=== PATIENT | female | born 1950 | race Caucasian/White ===

== ENCOUNTER 2019-10-15 07:30 | Outpatient (CLI) | payer SELFPAY | END 2019-10-15 07:31 | disposition home or self-care (01) | LOC: ANHWCLAB 07:39 | PROVIDERS: PCP Family Medicine | DX: D53.1 Other megaloblastic anemias, not elsewhere classified (principal); E03.9 Hypothyroidism, unspecified; E06.3 Autoimmune thyroiditis; M04.9 Autoinflammatory syndrome, unspecified | CPT/HCPCS: 36415 ==

== ENCOUNTER 2020-05-13 06:54 | Outpatient (NON) | payer MEDICARE, SELFPAY ==
[2020-05-14 00:43] LABS: SARS-CoV-2 RNA PCR Negative
== END 2020-05-13 06:55 ==
PROVIDERS: PCP Family Medicine; Visit Provider Family Medicine
DX: R50.9 Fever, unspecified (principal); J32.9 Chronic sinusitis, unspecified; Z20.828 Contact with and (suspected) exposure to other viral communicable diseases
CPT/HCPCS: 87635; C9803; U0003

== ENCOUNTER 2020-05-16 15:56 | Emergency (ER) | payer MEDICARE, SELFPAY ==
[2020-05-16 16:12] VITALS: BP 151/77; PULSE 139; RESP 20; TEMP 37; O2SAT 99
--- NOTE | 2020-05-16 16:39 | ED.EAR ---
HPI - Ear Problem General Chief complaint: Ear Stated complaint: earache, ankle Time Seen by Provider: 05/16/20 16:09 Source: patient and RN notes reviewed Mode of arrival: ambulatory Limitations: no limitations History of Present Illness HPI Narrative: Patient presents today with a 2 to 3-week history of intermittent right ear pain that has been consistent the past 5 days. Denies drainage or decreased hearing. Denies any additional symptoms except for fever. Fever is been occurring, only at nighttime, for the past 5 days with a T-max of 104 4 days ago. Patient had a negative COVID 19 test 6 days ago. Denies cough, congestion, rhinorrhea. She has taken no medication for symptoms prior to arrival. 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 MD Complaint: ear pain Related Data Home Medications Medication Instructions Recorded Confirmed fludrocortisone 0.1 mg DAILY 05/16/20 05/16/20 hydrocortisone 40 mg DAILY 05/16/20 05/16/20 thyroid (pork) [[place] Thyroid] 15 mg DAILY 05/16/20 05/16/20 Allergies Allergy/AdvReac Type Severity Reaction Status Date / Time levothyroxine sodium Allergy Unknown Verified 03/19/13 08:46 Review of Systems Review of Systems: Narrative: CONSTITUTIONAL: Denies body aches, chills, or sweats. + Fever, none at this time EYES: Denies visual changes, redness, or discharge. ENT: Denies rhinorrhea, congestion, sore throat. + Right ear pain CARDIOVASCULAR: Denies chest pain, palpitations, or edema. RESPIRATORY: Denies cough or dyspnea. GASTROINTESTINAL: Denies abdominal pain, nausea, vomiting, or diarrhea. GENITOURINARY: Denies dysuria or hematuria. SKIN: Denies rash, itching, or wounds. MUSCULOSKELETAL: Denies back pain, joint pain, or myalgia. NEUROLOGIC: Denies headache, numbness, tingling, or weakness. PSYCH: Denies depression or anxiety. [facility] Past Medical History Medical History (Updated 05/16/20 @ 16:46 by Batool Felder, DUCT CLEANER, ) Addisons disease Hypothyroidism Family History Family History (Updated 04/08/16 @ 23:19 by DOCTOR UNKNOWN) Mother Family history of arthritis Family history of diabetes mellitus in first degree relative Grandparent Family history of arthritis Diabetes mellitus Father Family history of Alzheimer's disease Social History Social History Smoking status: Never smoker Alcohol intake: never Gender identity (if verbalized by the patient): Female Comments At time of signature, I have reviewed and agree with nursing past medical, surgical, social and family history unless otherwise noted. Please see nursing chart for further information. There is no relevant family history pertinent to the presenting complaint Exam Narrative: Exam Narrative: GENERAL: Well-appearing, well-nourished, thin, and in no acute distress. HEAD: Normocephalic, atraumatic. EYES: EOMI. No redness or drainage. Conjunctivae normal. ENT: Mucous membranes pink and moist. Nares clear. No rhinorrhea. TMs normal bilaterally without any signs of infection. Mild tenderness to the area of the right eustachian tube. Throat normal. Uvula midline. NECK: Normal AROM. Supple. No lymphadenopathy. CHEST: No respiratory distress. Clear to auscultation. HEART: Regular rate and rhythm. No murmur appreciated. Normal peripheral pulses. EXTREMITIES: Normal range of motion. No edema. SKIN: Warm, dry, no rash. Capillary refill normal. Normal skin turgor. NEURO: No focal deficits. Alert and oriented x3. Gait steady. PSYCH: Normal affect. No signs of depression or anxiety. Course Course Emergency Course: Patient declines prescription for Flonase, as she would like to speak with her PCP before she starts this. Have also instructed follow-up with PCP if fever persists. Vital Signs Vital signs: Vital Signs Temperature 98.6 F 05/16/20 16:12 Pulse Rate 139 H 05/16/20 16:12 Respiratory Rate 20 05/16/20 16:12 Blood Pressure 151/77 H 05/16/20
== END 2020-05-16 16:57 | disposition home or self-care (01) ==
PROVIDERS: Emergency Provider Nurse Practitioner; PCP Family Medicine
DX: H69.91 Unspecified Eustachian tube disorder, right ear (principal); E27.1 Primary adrenocortical insufficiency; E03.9 Hypothyroidism, unspecified
CPT/HCPCS: 99211; G0463

== ENCOUNTER 2020-07-24 09:03 | Outpatient (CLI) | payer MEDICARE, SELFPAY ==
[2020-07-24 14:21] LABS: IFOB Positive Control Positive; Immunochemical Fecal Occult Bl Positive (N)
== END 2020-07-24 09:04 | disposition home or self-care (01) ==
PROVIDERS: PCP Family Medicine; Visit Provider Family Medicine
DX: R19.7 Diarrhea, unspecified (principal)
CPT/HCPCS: 82274; 87045; 87046; 87324; 87427; 89055

== ENCOUNTER 2021-01-02 08:00 | Emergency (ER) | payer MEDICARE, SELFPAY ==
--- NOTE | ~2021-01-02 | CT_ITS ---
EXAMINATION: CTA chest DATE: 01/02/2021 09:57 INDICATION: Left posterior chest pain. TECHNIQUE: Computed tomographic angiography (CTA) of the chest was performed with 100 mL Omnipaque-35 0 intravenous contrast. Automated exposure control and iterative reconstruction technique were employ ed. The dose-length product was 151.93 mGy-cm. Maximum intensity projection 3D-reconstructions of the aorta and other arteries were constructed by the technologist on a separate workstation. COMPARISON: Chest CT 02/03/2016 FINDINGS: There is mild scarring at the lung apices. There is mild atelectasis bilaterally. No pleura l effusion. The heart size is normal. No pericardial effusion. There is no pulmonary embolus. Thoraci c aorta is normal. There is a 7 mm cyst in left kidney. There are multiple chronic vertebral body fra ctures. There is mild thoracic spondylosis. No rib fracture. IMPRESSION: 1. Normal thoracic aorta. 2. No pulmonary embolus. Reviewed, dictated and finalized at location A.
[2021-01-02 08:11] VITALS: BP 131/71; PULSE 140; RESP 18; TEMP 36.4; O2SAT 100
[2021-01-02 08:21] VITALS: BP 134/79; PULSE 129; RESP 13; O2SAT 99
--- NOTE | 2021-01-02 08:22 | ECG_ITS ---
Measurements Intervals [place] Rate: 119 P: [place]: 0 QRS: 76 QRSD: 71 T: 68 QT: 300 QTc: 423 Interpretive Statements SINUS TACHYCARDIA BASELINE ARTIFACT- I, II, AVR, AVL, AVF ABNORMAL ECG Electronically Signed On 01-02-2021 12:01:18 CDT by Vahe Mukherjee D.O.
--- NOTE | 2021-01-02 08:25 | ED.GENADULT ---
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 She woke up with dull aching pain located at left shoulder blade on Monday. She states her pain has been constant but it seemed worse today. Her pain is exacerbated by twisting and movement. she has not taken anything for her pain. She denies cough, fever, shortness of breath, nausea or vomiting. She has been noted to be tachycardic in triage. She reports she has intermittent palpitations due to her diseases. She reports resting heart rate above 100s. She takes Propranolol as needed but she states she does not take it daily. Related Data Home Medications Medication Instructions Recorded Confirmed fludrocortisone 0.1 mg DAILY 05/16/20 05/16/20 hydrocortisone 10 mg DAILY 05/16/20 05/16/20 thyroid (pork) [[place] Thyroid] 15 mg DAILY 05/16/20 05/16/20 hydrocortisone 5 mg PO DAILY 01/02/21 hydrocortisone 5 mg PO DAILY 01/02/21 thyroid (pork) [[place] Thyroid] DAILY 01/02/21 Allergies Allergy/AdvReac Type Severity Reaction Status Date / Time Penicillins Allergy Mild Itching Verified 01/02/21 08:14 levothyroxine sodium Allergy Hives Verified 01/02/21 08:15 [From Synthroid] Review of Systems Review of Systems: All systems reviewed & are unremarkable except as noted in HPI and below Constitutional: Constitutional: Denies chills and Denies fever(s) Cardiovascular: Cardiovascular: Denies chest pain and Denies radiating jaw, neck or arm pain Respiratory: Respiratory: Denies cough, Denies dyspnea and Denies wheezing Gastrointestinal: Gastrointestinal: Denies abdominal pain, Denies diarrhea, Denies nausea and Denies vomiting [facility] Past Medical History Medical History (Updated 01/02/21 @ 10:44 by Hali Carl MD) Addisons disease Hypothyroidism Intermittent palpitations Family History Family History (Updated 04/08/16 @ 23:19 by DOCTOR UNKNOWN) Mother Family history of arthritis Family history of diabetes mellitus in first degree relative Grandparent Family history of arthritis Diabetes mellitus Father Family history of Alzheimer's disease Social History Social History Smoking status: Never smoker Alcohol intake: never Gender identity (if verbalized by the patient): Female Exam Const: General: no acute distress and alert Nutritional Appearance: thin Orientation/consciousness: patient oriented x3 Eyes: EOM: EOMs intact bilaterally Chest: Chest palpation & inspection: normal inspection of the chest Resp: Effort & Inspection: normal respiratory effort and no retractions Auscultation: clear to auscultation bilaterally Cardio: Rate: tachycardic Rhythm: regular rhythm Heart sounds: no murmurs GI: GI Palp: Yes Soft to palpation, Yes Tenderness to palpation present (GI) (epigastric), No Guarding due to palpation present (GI) and No Rigid due to palpation Auscultation: normal bowel sounds Back/Spine/Pelvis: Back: no CVA tenderness Skin: General skin exam: normal color Rashes: no rashes Neuro: General: patient oriented x3, moves all extremities and CN's II-XI intact bilaterally Extrem: General: no pedal edema Psych: Affect: Anxious affect present Course Reevaluation(s) Reevaluation #1: I Discussed with patient CT results showing multiple chronic fractures of her thoracic spine. This is likely exacerbating her pain. No acute fractures. She has appointment with PCP on Monday. She denies any prescriptions for pain or muscle relaxer. Date: 01/02/21 Time: 10:41 Vital Signs Vital signs: Vital Signs Temperature 97.6 F 01/02/21 08:11 Pulse Rate 140 H 01/02/21 08:11 Respiratory
[2021-01-02 08:44] LABS: Hematocrit 46.1 % (37.0-47.0); Hemoglobin 15.4 g/dL (12.0-15.0); Mean Corpuscular HGB Conc 33.4 g/dl (32-36); Mean Corpuscular Hemoglobin 31.2 pg (26-34); Mean Corpuscular Volume 93.5 fl (80-100); Platelet Count Result 225 k/mm3 (150-375); Red Blood Count 4.93 M/mm3 (4.2-5.4); Red Cell Distribution Width 13.3 % (11.5-14.5); White Blood Count 4.9 K/mm3 (4.5-10.0)
[2021-01-02] MEDS: SODIUM CHLORIDE 0.9% IV 1,000 ML 999 ML IV CONT (08:48)
[2021-01-02 08:50] LABS: Lactic Acid Reflex 1.3 mmol/L (0.7-2.1)
[2021-01-02 08:54] LABS: Alanine Aminotransferase 21 U/L (4-35); Albumin Level 4.5 g/dL (3.5-5.1); Alkaline Phosphatase 94 U/L (38-126); Anion Gap 7 mmol/L (8-16); Aspartate Amino Transferase 37 U/L (14-36); Bilirubin,Total 0.5 mg/dL (0.2-1.3); Blood Urea Nitrogen 19 mg/dL (7-17); CRP < 0.5 mg/dL (<1.0); Calcium 9.6 mg/dL (8.4-10.2); Carbon Dioxide 28 mmol/L (22-30); Chloride 103 mmol/L (98-107); Estimated CRCL calculation 65 ml/min; Estimated Glomerular Filt Rate > 60; Glucose 114 mg/dL (65-105); Lipase 143 U/L (23-300); Potassium 4.1 mmol/L (3.4-5.0); Sodium 138 mmol/L (137-145)
[2021-01-02 08:59] LABS: INR 0.8; Partial Thromboplastin Time 22.6 SECONDS (22.3-36.8); Prothrombin Time 11.6 Seconds (11.1-14.7)
[2021-01-02 09:02] LABS: D Dimer 0.37 ug/mL (<0.48); Troponin I < 0.012 ng/mL (0.000-0.034)
[2021-01-02 09:04] LABS: Band Neutrophils Percent 1 % (0-6); Lymphocytes Absolute Manual 0.93 K/mm3 (1.1-4.5); Monocytes Absolute Manual 0.29 K/mm3 (0.1-0.90); Monocytes Percent Manual 6 % (3-9); Neutrophils Absolute Manual 3.67 K/mm3 (1.7-7.2); Neutrophils Percent Manual 74 % (46-73); Platelet Estimate Adequate (Adequate); Total Cells Counted 100
[2021-01-02 09:32] VITALS: BP 132/74; PULSE 131; RESP 22; O2SAT 99
[2021-01-02 10:52] VITALS: BP 116/76; PULSE 128; RESP 18; O2SAT 98
== END 2021-01-02 11:01 | disposition home or self-care (01) ==
PROVIDERS: Emergency Provider General Practice; PCP Family Medicine
DX: M84.48XA Pathological fracture, other site, initial encounter for fracture (principal); R00.0 Tachycardia, unspecified; E27.1 Primary adrenocortical insufficiency; E06.3 Autoimmune thyroiditis; E03.9 Hypothyroidism, unspecified
CPT/HCPCS: 36415; 71275; 80053; 83605; 83690; 83735; 84484; 85025; 85380; 85610; 85730; 86140; 93005; 96360; 99284; J7030; Q9967

== ENCOUNTER → 2021-03-04 13:12 | Outpatient (CLI) | payer MEDICARE, SELFPAY ==
--- NOTE | ~2021-03-04 | DEXA_ITS ---
Bone Density Report Name: Muriel Ceballos Age: 70 Sex: Female Ethnicity: White Date of : 1950 Indication: postmenopausal osteoporosis; parental hip fracture; height loss; history of glucocorticoids; prior fracture; Referring Provider: Rafael, Elena Study: Bone densitometry was performed. Exam Date: March 04, 2021 Accession number: [id number] Bone Density: Region BMD T-score Z-score Classification AP Spine (L1-L4) 0.533 -4.7 -2.5 Osteoporosis Femoral Neck (Right) 0.526 -2.9 -1.0 Osteoporosis Total Hip (Right) 0.580 -3.0 -1.4 Osteoporosis World Health Organization criteria for BMD impression classify patients as: Normal (T-score at or above -1.0), Osteopenia (T-score between -1.0 and -2.5), or Osteoporosis (T-score at or below -2.5). 10-year Fracture Risk: FRAX not reported because: Some T-score for Spine Total or Hip Total or Femoral Neck at or below -2.5 Prior hip or vertebral fracture Previous Exams: Region Exam Age BMD T-score BMD Change BMD Change Date g/cm2 vs Baseline vs Previous AP Spine(L1-L4) 03/04/2021 70 0.533 -4.7 -0.248 -0.215 06/24/2005 55 0.748 -2.7 -0.033* -0.033* 06/24/2005 55 0.781 -2.4 Total Hip(Right) 03/04/2021 70 0.580 -3.0 -0.127* -0.127* 06/24/2005 55 0.707 -1.9 *Denotes significance at 95% confidence level, LSC for AP Spine = 0.022 g/cm2, LSC for Total Hip = 0.027 g/cm2 Clinical Information Provided by Patient: Have had a previous hip or vertebral fracture Has had a low trauma fracture Parent has had a hip fracture Has taken Glucocorticoids Has used the following medications: Vitamin D, Calcium Patient maximum height was 66 Menopause Age: 49 Does not regularly consume dairy products Onset of menses at age 12 Number of children 0 Impression: The patient has established osteoporosis, based on the Total Spine T-score and the existence of a prior fracture. The patient has risk factors, including: parental hip fracture, previous fracture, history of glucocorticoid therapy. The BMD for the Total Hip(Right) decreased, changing by -0.127 since the last DXA exam. Discussion: HIGH RISK OF FRACTURE. BONE DENSITY IS UNDESIRABLY LOW AT ONE OR MORE SKELETAL SITES, CONSISTENT WITH POSTMENOPAUSAL OSTEOPOROSIS. This patient's lowest T-score, in a patient who has previously fractured, meets the World Health Organization's (WHO) criteria for severe osteoporosis. In untreated patients, the risk of osteoporotic fracture increases approximately two-fold for eac
== END ==
PROVIDERS: PCP Family Medicine; Visit Provider Nurse Practitioner Family
DX: Z13.820 Encounter for screening for osteoporosis (principal); M81.0 Age-related osteoporosis without current pathological fracture
CPT/HCPCS: 77080

== ENCOUNTER 2021-06-12 10:04 | Emergency (ER) | payer MEDICARE, SELFPAY ==
[2021-06-12 10:16] VITALS: BP 138/78; PULSE 120; RESP 18; TEMP 36.2; O2SAT 98
[2021-06-12 10:20] VITALS: BP 138/78; PULSE 120; RESP 18; TEMP 36.2; O2SAT 98
--- NOTE | 2021-06-12 10:48 | ED.BACK ---
HPI - Back Pain/Injury General Chief Complaint: Back Pain/Injury Stated Complaint: Lower Back Pain Source: patient Mode of arrival: ambulatory Limitations: no limitations History of Present Illness HPI Narrative: Patient is a 71-year-old female who presents complaining of a lower back pain. Patient reports pain is been present x8 days. Patient reports that she does to regular work out and exercise and has for the past 4 to 6 weeks. She denies known injury. She denies lifting heavy objects. Patient denies urinary complaints and all other complaints at this time. Patient denies taking [id number] medications prior to arrival. MD elicited complaint: back pain Related Data Home Medications Medication Instructions Recorded Confirmed fludrocortisone 0.1 mg DAILY 05/16/20 06/12/21 hydrocortisone 20 mg PO .QAM 05/16/20 06/12/21 thyroid (pork) [[place] Thyroid] 15 mg DAILY 05/16/20 06/12/21 hydrocortisone 10 mg PO .QPM 01/02/21 06/12/21 Allergies Allergy/AdvReac Type Severity Reaction Status Date / Time Penicillins Allergy Mild Itching Verified 06/12/21 11:22 levothyroxine sodium Allergy Hives Verified 06/12/21 11:22 [From Synthroid] Review of Systems Review of Systems: CONSTITUTIONAL: Denies fever, chills, or sweats. EYES: Denies visual changes, redness, or discharge. ENT: Denies rhinorrhea, congestion, sore throat, or otalgia. CARDIOVASCULAR: Denies chest pain, palpitations, or edema. RESPIRATORY: Denies cough or dyspnea. GASTROINTESTINAL: Denies abdominal pain, nausea, vomiting, or diarrhea. GENITOURINARY: Denies dysuria or hematuria. SKIN: Denies rash or itching. MUSCULOSKELETAL: Reports lower back pain NEUROLOGIC: Denies headache, numbness, dizziness, or weakness. PSYCHIATRIC: Denies anxiety or depression. [facility] Past Medical History Medical History Addisons disease Hypothyroidism Intermittent palpitations Family History Family History Mother Family history of arthritis Family history of diabetes mellitus in first degree relative Grandparent Family history of arthritis Diabetes mellitus Father Family history of Alzheimer's disease Social History Social History Smoking status: Never smoker Alcohol intake: never Gender identity (if verbalized by the patient): Female Exam Narrative: GENERAL: Well-appearing, well-nourished, and in no acute distress. HEAD: Normocephalic, atraumatic. EYES: EOMI. No redness or drainage. Conjunctiva are normal. ENT: Mucous membranes pink and moist. CHEST: No respiratory distress. Clear to auscultation. HEART: Patient tachycardic, she reports baseline rate. No murmur appreciated. Normal peripheral pulses. GI: Soft, nontender without rebound, or guarding. MUSCULOSKELETAL: No bony tenderness. EXTREMITIES: Normal range of motion. No edema. SKIN: Warm, dry, no rash. NEURO: No focal deficits. Alert and oriented x3. Gait steady. PSYCH: Normal affect. No signs of depression or anxiety. Course Vital Signs Vital signs: Vital Signs Temperature 36.2 C L 06/12/21 10:16 Pulse Rate 120 H 06/12/21 10:16 Respiratory Rate 18 06/12/21 10:16 Blood Pressure 138/78 06/12/21 10:16 Pulse Oximetry 98 06/12/21 10:16 Temperature 36.2 C L 06/12/21 10:20 Pulse Rate 120 H 06/12/21 10:20 Respiratory Rate 18 06/12/21 10:20 Blood Pressure 138/78 06/12/21 10:20 Pulse Oximetry 98 06/12/21 10:20 Reviewed. MDM - Back Pain/Injury MDM Narrative Medical decision making narrative: Discussed with patient most likely musculoskeletal in nature, however, patient does have small amount of blood in urine that she should also follow-up as well. Discussed with patient if flank/back pain increases that she should seek further evaluation in the emergency department to rule out kidney stone.
== END 2021-06-12 10:58 | disposition home or self-care (01) ==
PROVIDERS: Emergency Provider Nurse Practitioner; PCP Family Medicine
DX: M54.16 Radiculopathy, lumbar region (principal); R31.9 Hematuria, unspecified; E27.1 Primary adrenocortical insufficiency; E03.9 Hypothyroidism, unspecified
CPT/HCPCS: 81003; 99213; G0463

== ENCOUNTER → 2021-07-09 12:48 | Outpatient (CLI) | payer MEDICARE, SELFPAY ==
--- NOTE | ~2021-07-09 | CT_ITS ---
EXAMINATION: CT abdomen pelvis wo con DATE: 07/09/2021 13:06 INDICATION: Hematuria TECHNIQUE: Computed tomography (CT) of the abdomen and pelvis was performed without intravenous contr ast. The dose-length product was 230.64 mGy-cm. Automated exposure control and iterative reconstructi on technique were employed. COMPARISON: None. FINDINGS: There are fluid-filled distended small bowel loops throughout the abdomen which are not dil ated. There is a 3 mm nonobstructing left renal stone at the lower pole. No ureteral stones or signif icant hydronephrosis. Lung bases are unremarkable. Heart size normal. No significant pleural or pericardial effusion. Mild atherosclerosis of the aorta. No lymphadenopathy. No free air or free fluid. Bladder is unremarkable. Mild dextrocurvature of the lumbar spine. There is significant compression deformity of L4 which is likely chronic. IMPRESSION: 1. Fluid-filled distended, nondilated small bowel, suspicious for enteritis in the appropriate clinic al setting. 2: Nonobstructing left renal stone measuring 3 mm. Reviewed, dictated and finalized at location A. IMPRESSION: 1. Fluid-filled distended, nondilated small bowel, suspicious for enteritis in the appropriate clinical setting. 2: Nonobstructing left renal stone measuring 3 mm.
== END ==
PROVIDERS: PCP Family Medicine; Visit Provider Family Medicine
DX: R10.9 Unspecified abdominal pain (principal); N20.0 Calculus of kidney
CPT/HCPCS: 74176

== ENCOUNTER 2023-08-07 12:47 | Emergency (ER) | payer MEDICARE, SELFPAY ==
--- NOTE | ~2023-08-07 | US_ITS ---
EXAMINATION:US venous doppler LE LT INDICATION:Leg swelling TECHNIQUE: Multiple grayscale, color flow and Doppler images of the left lower extremity deep venous systems were obtained and reviewed. COMPARISON:No prior studies for comparison. FINDINGS: The common femoral, superficial femoral and popliteal veins demonstrate normal respiratory variation, augmentation and compressibility. Color flow is also seen within the posterior tibial, pe roneal, greater saphenous and profunda veins. IMPRESSION: 1: No lower extremity deep venous thrombosis. Reviewed, dictated and finalized at location B. ANIMAL CARETAKER
--- NOTE | ~2023-08-07 | XR_ITS ---
XR knee LT min 4V 08/07/2023 15:16 Indication: Left knee pain Procedure: 4 views left knee Comparison: No prior studies for comparison. Findings: No fracture, subluxation or dislocation. Moderate joint effusion. No foreign bodies. Impression: 1: Moderate joint effusion. Reviewed, dictated and finalized at location B. X SERVER ADMINISTRATOR Impression: 1: Moderate joint effusion.
[2023-08-07 12:54] VITALS: BP 125/74; PULSE 129; RESP 18; TEMP 36.3; O2SAT 97
[2023-08-07 14:59] VITALS: BP 120/73; PULSE 117; RESP 18; O2SAT 97
--- NOTE | 2023-08-07 15:07 | ED.GENADULT ---
HPI - General Adult General Chief complaint: Extremity Injury, Lower Stated complaint: left leg pain (r/o blood clot) Time Seen by Provider: 08/07/23 15:07 Source: patient Mode of arrival: ambulatory Limitations: no limitations History of Present Illness HPI narrative: This is a 73-year-old female with PMH of Mina's and [place]'s who presents to the ED with chief complaint of left the past week and worsened past days. Reports pain is in the posterior left knee and her main concern today is blood clot. Denies any major swelling or any specific injuries to the knee. She does note that she and her walk a lot each day and she may have over did it as she was walking on the knee while in pain. Denies fevers, chills, lesions to the knee, warmth. She does also note that her doctor reduced her hydrocortisone recently and is unsure if this is having an effect on her pain. Upon arrival her triage, Heart rate is in the 120s and 110s. She tells me that this is not new to her and that she often has a elevated heart rate Related Data Home Medications Medication Instructions Recorded Confirmed fludrocortisone 0.1 mg tablet 0.1 mg DAILY 05/16/20 06/12/21 hydrocortisone 5 mg tablet 20 mg PO .QAM 05/16/20 06/12/21 thyroid (pork) 15 mg tablet 15 mg DAILY 05/16/20 06/12/21 ([place] Thyroid) hydrocortisone 5 mg tablet 10 mg PO .QPM 01/02/21 06/12/21 Allergies Allergy/AdvReac Type Severity Reaction Status Date / Time Penicillins Allergy Mild Itching Verified 08/07/23 15:03 levothyroxine sodium Allergy Hives Verified 08/07/23 15:03 [From Synthroid] Review of Systems Review of Systems: All systems as dictated in HPI [facility] Past Medical History Medical History Addisons disease Hypothyroidism Intermittent palpitations Family History Family History Mother Family history of arthritis Family history of diabetes mellitus in first degree relative Grandparent Family history of arthritis Diabetes mellitus Father Family history of Alzheimer's disease Social History Social History Smoking status: Never smoker Alcohol intake: never Gender identity (if verbalized by the patient): Female Exam Narrative: GENERAL: Well-appearing, well-nourished, and in no acute distress. HEAD: Normocephalic, atraumatic. EYES: PERRLA and EOMI. ENT: Nares clear, no rhinorrhea or epistaxis. Mucous membranes moist. Oropharynx without tonsillar hypertrophy exudate or other lesions. NECK: Supple. No adenopathy or masses. CHEST: No respiratory distress. Clear to auscultation. No wheezes rales or rhonchi HEART: Regular rate and rhythm. No murmur heard. Normal peripheral pulses. ABDOMEN: Soft, nontender, nondistended, normal active bowel sounds. MSK: Mild tenderness to the left posterior knee. No bruising, swelling or deformity. Full active and passive range of motion of the knee. No warmth, erythema. No lesions. No rash. She is able to bear weight and ambulate with some pain. No swelling to the calf or lower leg. Right lower extremity grossly benign. SKIN: Warm, dry, no rash. NEURO: Alert and oriented x3. No focal deficits. PSYCH: Normal mood and affect. Course Vital Signs Vital signs: Vital Signs Temperature 97.4 F L 08/07/23 12:54 Pulse Rate 129 H 08/07/23 12:54 Respiratory Rate 18 08/07/23 12:54 Blood Pressure 125/74 08/07/23 12:54 Pulse Oximetry 97 08/07/23 12:54 Oxygen Delivery Room Air 08/07/23 12:54 Temperature 97.4 F L 08/07/23 12:54 Pulse Rate 117 H 08/07/23 14:59 Respiratory Rate 18 08/07/23 14:59 Blood Pressure 120/73 08/07/23 14:59 Pulse Oximetry 97 08/07/23 14:59 Oxygen Delivery Room Air 08/07/23 12:54 Medical Decision Making MDM Narrative Medical decision making narrative: T
== END 2023-08-07 16:06 | disposition home or self-care (01) ==
PROVIDERS: Emergency Provider Physician Assistant; PCP Family Medicine
DX: M25.562 Pain in left knee (principal); E27.1 Primary adrenocortical insufficiency; E03.9 Hypothyroidism, unspecified; E06.3 Autoimmune thyroiditis
CPT/HCPCS: 73564; 93971; 99284

== ENCOUNTER → 2023-11-02 09:12 | Outpatient (CLI) | payer MEDICARE, SELFPAY ==
--- NOTE | ~2023-11-02 | DEXA_ITS ---
Bone Density Report Name: KELVIN UNGER Age: 73 Sex: Female Ethnicity: White Date of : 1950 Indication: postmenopausal osteoporosis; parental hip fracture; height loss; history of glucocorticoids; prior fracture; Referring Provider: SEGUNDO, KEREN Ceballos Study: Bone densitometry was performed. Exam Date: November 02, 2023 Accession number: [id number] Bone Density: Region BMD T-score Z-score Classification AP Spine (L1-L4) 0.495 -5.0 -2.7 Osteoporosis Femoral Neck (Left) 0.446 -3.6 -1.6 Osteoporosis Total Hip (Left) 0.481 -3.8 -2.0 Osteoporosis Femoral Neck (Right) 0.495 -3.2 -1.1 Osteoporosis Total Hip (Right) 0.547 -3.2 -1.5 Osteoporosis Total Hip Mean 0.514 -3.5 -1.8 Osteoporosis World Health Organization criteria for BMD impression classify patients as: Normal (T-score at or above -1.0), Osteopenia (T-score between -1.0 and -2.5), or Osteoporosis (T-score at or below -2.5). 10-year Fracture Risk: FRAX not reported because: Some T-score for Spine Total or Hip Total or Femoral Neck at or below -2.5 Prior hip or vertebral fracture Previous Exams: Region Exam Age BMD T-score BMD Change BMD Change Date g/cm2 vs Baseline vs Previous AP Spine(L1-L4) 11/02/2023 73 0.495 -5.0 -0.286 -0.038* 03/04/2021 70 0.533 -4.7 -0.248 -0.215 06/24/2005 55 0.748 -2.7 -0.033* -0.033* 06/24/2005 55 0.781 -2.4 Total Hip(Left) 11/02/2023 73 0.481 -3.8 -0.260* -0.102* 03/04/2021 70 0.583 -2.9 -0.158* -0.146 06/24/2005 55 0.729 -1.7 -0.012 -0.012 06/24/2005 55 0.741 -1.6 Total Hip(Right) 11/02/2023 73 0.547 -3.2 -0.160* -0.033* 03/04/2021 70 0.580 -3.0 -0.127* -0.127* 06/24/2005 55 0.707 -1.9 *Denotes significance at 95% confidence level, LSC for AP Spine = 0.022 g/cm2, LSC for Total Hip = 0.027 g/cm2 Clinical Information Provided by Patient: Have had a previous hip or vertebral fracture Has had a low trauma fracture Parent has had a hip fracture Has taken Glucocorticoids Has used the following medications: Vitamin D, MTV, hydrocortisone, fludrocortisone Patient maximum height was 64 Menopause Age: 46 Onset of menses at age 12 Number of children 0 Impression: The patient has established osteoporosis, based on the Total Spine T-score and the existence of a prior fracture. The patient h
== END ==
PROVIDERS: PCP Internal Medicine Endocrinology, Diabetes & Metabolism; Visit Provider Internal Medicine Endocrinology, Diabetes & Metabolism
DX: M81.0 Age-related osteoporosis without current pathological fracture (principal)
CPT/HCPCS: 77080

== ENCOUNTER 2024-11-07 11:47 | Emergency (ER) | payer MEDICARE, SELFPAY ==
[2024-11-07 12:03] VITALS: BP 144/79; PULSE 129; RESP 16; O2SAT 98
--- NOTE | 2024-11-07 12:56 | ED.ABDPAIN ---
HPI - Abdominal Pain General Chief Complaint: Abdominal Pain <Alanis Turner PA-C - Last Filed: 11/08/24 09:12> Stated Complaint: abd pain on the left side for 9 day develop fever <Alanis Turner PA-C - Last Filed: 11/08/24 09:12> Time Seen by Provider: 11/07/24 12:56 <Alanis Turner PA-C - Last Filed: 11/08/24 09:12> Focused HPI: This is a 74 year old female that presents to the ER for abdominal pain. Reports lower abdominal cramping that started about a week ago. Reports she was having some vaginal bleeding. Reports now she is having fevers as well. Denies vomiting, dysuria, hematuria, diarrhea. GENERAL: Well-appearing, well-nourished, and in no acute distress. HEAD: Normocephalic, atraumatic. CHEST: Clear to auscultation. ?No respiratory distress. HEART: Regular rate and rhythm.? NEURO: ?Alert and oriented x3. Patient screened in triage and initial orders placed.? ?Additional care and disposition to be based upon?diagnostic testing and treatment. <Alanis Turner PA-C - Last Filed: 11/08/24 09:12> History of Present Illness HPI narrative: Patient 74-year-old female presents emergency department chief complaint of abdominal pain. Patient reports that having cramping in the abdomen reports he has had left lower quadrant discomfort for the last week. Patient did report some spotting does report that she has history of thickened endometrium. <Jared Matthew MD - Last Filed: 11/07/24 16:21> Related Data Home Medications: Home Medications ?Medication ?Instructions ?Recorded ?Confirmed ?Last Taken ?Type hydrocortisone 5 mg tablet 20 mg PO .QAM 05/16/20 02/02/24 Unknown History thyroid (pork) 15 mg tablet 15 mg DAILY 05/16/20 02/02/24 Unknown History (Butler Thyroid) cholecalciferol (vitamin D3) 125 125 mcg PO DAILY 02/02/24 02/02/24 Unknown History mcg (5,000 unit) capsule fludrocortisone 0.1 mg tablet 0.2 mg PO DAILY 02/02/24 02/02/24 Unknown History multivitamin 1 tablet PO DAILY 02/02/24 02/02/24 Unknown History thyroid (pork) 60 mg tablet 60 mg PO DAILY 02/02/24 02/02/24 Unknown History (Butler Thyroid) <Alanis Turner PA-C - Last Filed: 11/08/24 09:12> Allergies/Adverse Reactions: Allergies Allergy/AdvReac Type Severity Reaction Status Date / Time Penicillins Allergy Mild Itching Verified 11/07/24 11:49 levothyroxine sodium (From Allergy Hives Verified 11/07/24 11:49 Synthroid) <Alanis Turner PA-C - Last Filed: 11/08/24 09:12> Review of Systems Review of Systems: A 10 system review of systems was completed on the patient and is negative except for what is stated in the HPI. Nursing and ancillary documentation was reviewed. <Jared Matthew MD - Last Filed: 11/07/24 16:21> [facility] Past Medical History Medical History: Medical History Hyperlipidemia Fatigue Osteoporosis Intermittent palpitations Hypothyroidism Addisons disease <Alanis Turner PA-C - Last Filed: 11/08/24 09:12> Family History Family History: Family History Mother Family history of arthritis Family history of diabetes mellitus in first degree relative Grandparent Family history of arthritis Diabetes mellitus Father Cerebrovascular accident Family history of Alzheimer's disease Grandparent Alcoholism <Alanis Turner PA-C - Last Filed: 11/08/24 09:12> Social History Social History: Social History Smoking status: Never smoker Alcohol intake: never Substance use: never Current Housing: Decline to Answer Concerned About Future Housing: Decline to Answer Difficulty Paying Gas/Electric Bills: Decline to Answer Difficulty Paying for Meds: Decline to Answer Currently Unemployed: Decline to Answer Education: Decline to Answer Difficulty w/ Childcare or Family Care: Decline to Answer Gender identity (if verbalized by the patient): Female <Alanis Turner PA-C - Last Filed: 11/08/24 09:12> Exam Narrative: GENERAL: Well-appearing, well-nourished, and in no acute distress. HEAD: Normocephalic, atraumatic. EYES: PERRLA and EOMI. ENT: Nares clear, no rhinorrhea or epistaxis. Mucous membranes moist. NECK: Supple. CHEST: Clear to auscultation. No respiratory distress. HEART: Regular rate and rhythm. No murmur heard. Normal peripheral pulses. ABDOMEN: Soft, mild tenderness to palpation left lower quadrant, nondistended, normal active bowel sounds. EXTREMITIES: Normal range of motion. No edema. SKIN: Warm, dry, no rash. NEURO: No focal deficits. Alert and oriented x3. PSYCH: Normal mood and affect. <Jared Matthew MD - Last Filed: 11/07/24 16:21> Course Vital Signs Vital signs: Vital Signs Pulse Rate 129 H 11/07/24 12:03 Respiratory Rate 16 11/07/24 12:03 Blood Pressure 144/79 H 11/07/24 12:03 Pulse Oximetry 98 11/07/24 12:03 Oxygen Delivery Room Air 11/07/24 12:03 Pulse Rate 112 H 11/07/24 15:45 Respiratory Rate 18 11/07/24 15:45 Blood Pressure 157/86 H 11/07/24 15:45 Pulse Oximetry 97 11/07/24 15:45 Oxygen Delivery Room Air 11/07/24 12:03 <Alanis Turner PA-C - Last Filed: 11/08/24 09:12> Vital Signs Pulse Rate 129 H 11/07/24 12:03 Respiratory Rate 16 11/07/24 12:03 Blood Pressure 144/79 H 11/07/24 12:03 Pulse Oximetry 98 11/07/24 12:03 Oxygen Delivery Room Air 11/07/24 12:03 Pulse Rate 112 H 11/07/24 15:45 Respiratory Rate 18 11/07/24 15:45 Blood Pressure 157/86 H 11/07/24 15:45 Pulse Oximetry 97 11/07/24 15:45 Oxygen Delivery Room Air 11/07/24 12:03 <Jared Matthew MD - Last Filed: 11/07/24 16:21> MDM - Abdominal Pain Lab Data Result diagrams: 11/07/24 13:07 11/07/24 13:07 <Alanis Turner PA-C - Last Filed: 11/08/24 09:12> Labs: Lab Results 11/07/24 11/07/24 Range/Units 13:07 15:43 WBC 14.5 H (4.5-10.0) K/mm3 RBC 4.55 (4.2-5.4) M/mm3 Hgb 13.8 (12.0-15.0) g/dL Hct 41.9 (37.0-47.0) % MCV 92.1 (80-100) fl MCH 30.3 (26-34) pg MCHC 32.9 (32-36) g/dl RDW 13.1 (11.5-14.5) % Plt Count 305 (150-375) k/mm3 MPV 8.7 (7.4-10.4) fl Immature Gran % (Auto) Not Reportable Neut % (Auto) Not Reportable Lymph % (Auto) Not Reportable [place] % (Auto) Not Reportable Eos % (Auto) Not Reportable Baso % (Auto) Not Reportable Lymph # (Auto) Not Reportable [place] # (Auto) Not Reportable Eos # (Auto) Not Reportable Baso # (Auto) Not Reportable Abs Immat Gran (auto) Not Reportable Absolute Neuts (auto) Not Reportable Absolute Nucleated RBC Not Reportable Total Counted 100 Neutrophils % (Manual) 82 H (46-73) % Band Neutrophils % 1 (0-6) % Lymphocytes % (Manual) 11 L (18-44) % Monocytes % (Manual) 6 (3-9) % Eosinophils % (Manual) 0 (0-4) % Basophils % (Manual) 0 (0-1) % Nucleated RBC % Not Reportable Abs Neuts (Manual) 12.03 H (1.7-7.2) K/mm3 Abs Lymphs (Manual) 1.59 (1.1-4.5) K/mm3 Abs Monocytes (Manual) 0.87 (0.1-0.90) K/mm3 Absolute Eos (Manual) 0.00 L (0.02-0.50) K/mm3 Abs Basophils (Manual) 0.00 (0.0-0.1) K/mm3 Atypical Lymphocytes Present Platelet Estimate Adequate (Adequate) Anisocytosis 1+ Ovalocytes 1+ Schistocytes None seen PT 13.7 (11.1-14.7) Seconds INR 1.0 APTT 26.0 (22.3-36.8) Seconds Sodium 138 (137-145) mmol/L Potassium 3.5 (3.4-5.0) mmol/L Chloride 103 (98-107) mmol/L Carbon Dioxide 26 (22-30) mmol/L Anion Gap 9 (4-12) mmol/L BUN 17 (7-17) mg/dL Creatinine 0.68 L (0.7-1.0) mg/dL Estim Creat Clear Calc 49 ml/min Estimated GFR > 60 (59 - ) Glucose 128 H (65-110) mg/dL Calcium 9.1 (8.4-10.2) mg/dL Total Bilirubin 0.8 (0.2-1.3) mg/dL AST 22 (14-36) U/L ALT 15 (6-35) U/L Alkaline Phosphatase 99 (38-126) U/L Total Protein 7.0 (6.3-8.2) g/dL Albumin 3.8 (3.5-5.1) g/dL Lipase 65 (23-300) U/L Urine Color Yellow (Yellow) Urine Appearance Clear (Clear) Urine pH 6.0 (5.0-9.0) Ur Specific [place] 1.014 (1.001-1.035) Urine Protein Negative (Negative) mg/dL Urine Glucose (UA) Negative (Negative) mg/dL Urine Ketones 1+ H (Negative) mg/dL Ur Blood (Man) 1+ H (Negative) Urine Nitrate Negative (Negative) Urine Bilirubin Negative (Negative) Urine Urobilinogen 0.2 (<2.0) mg/dL Leukocyte Esterase Rfl Trace H (Negative) VERA/UL Urine RBC 3-5 H (0-2) /hpf Urine WBC 11-20 H (0-3) /hpf Ur Squamous Epith Cells None seen (Few) /hpf Urine Bacteria None seen /hpf Urine Casts 0-2 <Alanis Turner PA-C - Last Filed: 11/08/24 09:12> Lab Results 11/07/24 11/07/24 Range/Units 13:07 15:43 WBC 14.5 H (4.5-10.0) K/mm3 RBC 4.55 (4.2-5.4) M/mm3 Hgb 13.8 (12.0-15.0) g/dL Hct 41.9 (37.0-47.0) % MCV 92.1 (80-100) fl MCH 30.3 (26-34) pg MCHC 32.9 (32-36) g/dl RDW 13.1 (11.5-14.5) % Plt Count 305 (150-375) k/mm3 MPV 8.7 (7.4-10.4) fl Immature Gran % (Auto) Not Reportable Neut % (Auto) Not Reportable Lymph % (Auto) Not Reportable [place] % (Auto) Not Reportable Eos % (Auto) Not Reportable Baso % (Auto) Not Reportable Lymph # (Auto) Not Reportable [place] # (Auto) Not Reportable Eos # (Auto) Not Reportable Baso # (Auto) Not Reportable Abs Immat Gran (auto) Not Reportable Absolute Neuts (auto) Not Reportable Absolute Nucleated RBC Not Reportable Total Counted 100 Neutrophils % (Manual) 82 H (46-73) % Band Neutrophils % 1 (0-6) % Lymphocytes % (Manual) 11 L (18-44) % Monocytes % (Manual) 6 (3-9) % Eosinophils % (Manual) 0 (0-4) % Basophils % (Manual) 0 (0-1) % Nucleated RBC % Not Reportable Abs Neuts (Manual) 12.03 H (1.7-7.2) K/mm3 Abs Lymphs (Manual) 1.59 (1.1-4.5) K/mm3 Abs Monocytes (Manual) 0.87 (0.1-0.90) K/mm3 Absolute Eos (Manual) 0.00 L (0.02-0.50) K/mm3 Abs Basophils (Manual) 0.00 (0.0-0.1) K/mm3 Atypical Lymphocytes Present Platelet Estimate Adequate (Adequate) Anisocytosis 1+ Ovalocytes 1+ Schistocytes None seen PT 13.7 (11.1-14.7) Seconds INR 1.0 APTT 26.0 (22.3-36.8) Seconds Sodium 138 (137-145) mmol/L Potassium 3.5 (3.4-5.0) mmol/L Chloride 103 (98-107) mmol/L Carbon Dioxide 26 (22-30) mmol/L Anion Gap 9 (4-12) mmol/L BUN 17 (7-17) mg/dL Creatinine 0.68 L (0.7-1.0) mg/dL Estim Creat Clear Calc 49 ml/min Estimated GFR > 60 (59 - ) Glucose 128 H (65-110) mg/dL Calcium 9.1 (8.4-10.2) mg/dL Total Bilirubin 0.8 (0.2-1.3) mg/dL AST 22 (14-36) U/L ALT 15 (6-35) U/L Alkaline Phosphatase 99 (38-126) U/L Total Protein 7.0 (6.3-8.2) g/dL Albumin 3.8 (3.5-5.1) g/dL Lipase 65 (23-300) U/L Urine Color Yellow (Yellow) Urine Appearance Clear (Clear) Urine pH 6.0 (5.0-9.0) Ur Specific [place] 1.014 (1.001-1.035) Urine Protein Negative (Negative) mg/dL Urine Glucose (UA) Negative (Negative) mg/dL Urine Ketones 1+ H (Negative) mg/dL Ur Blood (Man) 1+ H (Negative) Urine Nitrate Negative (Negative) Urine Bilirubin Negative (Negative) Urine Urobilinogen 0.2 (<2.0) mg/dL Leukocyte Esterase Rfl Trace H (Negative) VERA/UL Urine RBC 3-5 H (0-2) /hpf Urine WBC 11-20 H (0-3) /hpf Ur Squamous Epith Cells None seen (Few) /hpf Urine Bacteria None seen /hpf Urine Casts 0-2 <Jared Matthew MD - Last Filed: 11/07/24 16:21> Imaging Data Radiologist's impression: ITS Impressions Abdomen/Pelvis CT 11/07/24 15:40 IMPRESSION: 1. Thickened endometrial complex. The differential diagnosis includes endometrial hyperplasia, polyp, and carcinoma. Biopsy is recommended. 2. 5.9 x 3.6 cm left adnexal mass abutting the sigmoid colon. The differential diagnosis includes ovarian neoplasm, ovarian torsion, abscess, and tamiko metastatic disease. Pelvis CT with contrast is recommended. <Alanis Turner PA-C - Last Filed: 11/08/24 09:12> ITS Impressions Abdomen/Pelvis CT 11/07/24 15:40 IMPRESSION: 1. Thickened endometrial complex. The differential diagnosis includes endometrial hyperplasia, polyp, and carcinoma. Biopsy is recommended. 2. 5.9 x 3.6 cm left adnexal mass abutting the sigmoid colon. The differential diagnosis includes ovarian neoplasm, ovarian torsion, abscess, and tamiko metastatic disease. Pelvis CT with contrast is recommended. <Jared Matthew MD - Last Filed: 11/07/24 16:21> Critical Care Time Critical Care Time Critical Care Time: No <Alanis Turner PA-C - Last Filed: 11/08/24 09:12> Discharge Plan Discharge Clinical Impression: Adnexal mass, Acute UTI Abdominal pain Qualifiers: Abdominal location: unspecified location Qualified Code(s): R10.9 - Unspecified abdominal pain <Alanis Turner PA-C - Last Filed: 11/08/24 09:12> Patient Disposition: Home, Self-Care <Alanis Turner PA-C - Last Filed: 11/08/24 09:12> Condition: Stable <Alanis Turner PA-C - Last Filed: 11/08/24 09:12> Instructions: Antibiotic Form, Urinary Tract Infection in Women (ED), Abdominal Pain (ED) <Alanis Truner PA-C - Last Filed: 11/08/24 09:12> Additional Instructions: Your CT scan showed that there is a mass in your left lower pelvis. Your SH[employer]ER PAD [employer]DER will coordinate doing additional testing as an outpatient and please follow-up with her in the office <Alanis Turner PA-C - Last Filed: 11/08/24 09:12> Patient Language: Frisian <Alanis Turner PA-C - Last Filed: 11/08/24 09:12> Prescriptions: New cephalexin 500 mg capsule 500 mg PO Q12H 7 Days Qty: 14 0RF No Action thyroid (pork) [Butler Thyroid] 15 mg tablet 15 mg DAILY Rx Instructions: at 1030 AM hydrocortisone 5 mg tablet 20 mg PO .QAM thyroid (pork) [Butler Thyroid] 60 mg tablet 60 mg PO DAILY fludrocortisone 0.1 mg tablet 0.2 mg PO DAILY multivitamin Tablet 1 tablet PO DAILY cholecalciferol (vitamin D3) 125 mcg (5,000 unit) capsule 125 mcg PO DAILY <Alanis Turner PA-C - Last Filed: 11/08/24 09:12> Follow-up/Referrals: Yudith Banuelos NP [Primary Care Provider] - Francisco Ma MD [Physician] - <Alanis Turner PA-C - Last Filed: 11/08/24 09:12> Time of Disposition: 16:20 <Alanis Turner PA-C - Last Filed: 11/08/24 09:12> 16:20 <Jared Matthew MD - Last Filed: 11/07/24 16:21>
[2024-11-07 13:13] LABS: Hematocrit 41.9 % (37.0-47.0); Hemoglobin 13.8 g/dL (12.0-15.0); Mean Corpuscular HGB Conc 32.9 g/dl (32-36); Mean Corpuscular Hemoglobin 30.3 pg (26-34); Mean Corpuscular Volume 92.1 fl (80-100); Mean Platelet Volume 8.7 fl (7.4-10.4); Platelet Count Result 305 k/mm3 (150-375); Red Blood Count 4.55 M/mm3 (4.2-5.4); Red Cell Distribution Width 13.1 % (11.5-14.5); White Blood Count 14.5 K/mm3 (4.5-10.0)
[2024-11-07 13:23] LABS: Alanine Aminotransferase 15 U/L (6-35); Albumin Level 3.8 g/dL (3.5-5.1); Alkaline Phosphatase 99 U/L (38-126); Anion Gap 9 mmol/L (4-12); Aspartate Amino Transferase 22 U/L (14-36); Bilirubin,Total 0.8 mg/dL (0.2-1.3); Blood Urea Nitrogen 17 mg/dL (7-17); Calcium 9.1 mg/dL (8.4-10.2); Carbon Dioxide 26 mmol/L (22-30); Chloride 103 mmol/L (98-107); Estimated CRCL calculation 49 ml/min; Estimated Glomerular Filt Rate > 60; Glucose 128 mg/dL (65-110); Lipase 65 U/L (23-300); Potassium 3.5 mmol/L (3.4-5.0); Sodium 138 mmol/L (137-145)
[2024-11-07 13:29] LABS: Total Cells Counted 100
[2024-11-07 13:30] LABS: Anisocytosis 1+; Band Neutrophils Percent 1 % (0-6); Basophils Percent Manual 0 % (0-1); Eosinophils Percent Manual 0 % (0-4); Lymphocytes Absolute Manual 1.59 K/mm3 (1.1-4.5); Lymphocytes Percent Manual 11 % (18-44); Monocytes Absolute Manual 0.87 K/mm3 (0.1-0.90); Monocytes Percent Manual 6 % (3-9); Neutrophils Absolute Manual 12.03 K/mm3 (1.7-7.2); Neutrophils Percent Manual 82 % (46-73); Ovalocytes 1+; Platelet Estimate Adequate (Adequate); Prothrombin Time 13.7 Seconds (11.1-14.7)
[2024-11-07 13:31] LABS: Atypical Lymphocytes Present; Schistocytes None Seen
[2024-11-07 15:45] VITALS: BP 157/86; PULSE 112; RESP 18; O2SAT 97
[2024-11-07 15:55] LABS: Add Urine Microscopic? YES; Appearance Urine Clear (Clear); Bacteria Urine None Seen /hpf; Bilirubin Urine Negative (Negative); Blood Urine 1+ (Negative); Color Urine Yellow (Yellow); Glucose Urine UA Negative (Negative); Ketones Urine 1+ mg/dL (Negative); Leukocyte Esterase Ur Trace LEU/UL (Negative); Nitrate Urine Negative (Negative); Non Pathogenic Casts 0-2; Protein Urine Negative (Negative); Specific Grav Ur 1.014 (1.001-1.035); Squamous Epithelial Cell Urine None Seen /hpf (Few); Urobilinogen Urine 0.2 mg/dL (<2.0)
== END 2024-11-07 16:36 | disposition home or self-care (01) ==
PROVIDERS: Physician Assistant; Emergency Provider Emergency Medicine; PCP Nurse Practitioner Family
DX: N39.0 Urinary tract infection, site not specified (principal); N94.89 Other specified conditions associated with female genital organs and menstrual cycle; E78.5 Hyperlipidemia, unspecified; E03.9 Hypothyroidism, unspecified; E27.1 Primary adrenocortical insufficiency; M81.0 Age-related osteoporosis without current pathological fracture; R00.0 Tachycardia, unspecified; R94.31 Abnormal electrocardiogram [ECG] [EKG]
CPT/HCPCS: 36415; 74176; 80053; 81001; 83690; 85025; 85610; 85730; 87086; 87186; 93005; 99284